=== PATIENT | male | born 1935 | race Caucasian/White ===

== ENCOUNTER 2017-05-27 10:50 | Emergency (ER) | payer OTHER ==
[~2017-05-27] VITALS: Ht 167.6 cm; Wt 79.8 kg
[~2017-05-27 10:50] MED LIST: ALEVE220 MG PO; B-COMPLEX-VITA1 EACH PO; CELEXA 10 MG TA10 M1 PO; IBUPROFEN 800800 M1 PO; IRON PO; KEFLEX500 MG PO; MIDODRINE HCL 55 M1 PO; MULTIVITAMINS PO; NORCO 5-325 TA1 EACH PO; VITAMIN E400 UNIT PO; ZOCOR20 MG PO
[2017-05-27] MEDS ORDERED: ASPIR 8181 MG PO (11:10)
[2017-05-27] MEDS ORDERED: VITAMIN D3400 UNIT PO (11:10)
[2017-05-27] MEDS ORDERED: HYDROCODONE-AP1 EAC6 PO (11:49)
[2017-05-27] MEDS ORDERED: IBUPROFEN 600600 M1 PO (11:49)
[2017-05-27] MEDS ORDERED: NORFLEX100 MG PO (11:49)
[2017-05-27 12:03] VITALS: BP 147/80
== END 2017-05-27 12:04 | disposition home or self-care (01) ==
LOC: M.ERS 10:50
DX: S39.012A Strain of muscle, fascia and tendon of lower back, initial encounter (principal); M19.90 Unspecified osteoarthritis, unspecified site; Z95.1 Presence of aortocoronary bypass graft; Z98.890 Other specified postprocedural states; X58.XXXA Exposure to other specified factors, initial encounter; Y93.E9 Activity, other interior property and clothing maintenance; Y92.89 Other specified places as the place of occurrence of the external cause; Y99.0 Civilian activity done for income or pay

== ENCOUNTER → 2017-06-01 | Outpatient (CLI) | payer OTHER ==
[~2017-06-01] MED LIST changes: +ASPIR 8181 MG PO; +HYDROCODONE-AP1 EAC6 PO; +IBUPROFEN 600600 M1 PO; +NORFLEX100 MG PO; +VITAMIN D3400 UNIT PO
== END ==
LOC: M.RAD 10:06
DX: M47.896 Other spondylosis, lumbar region (principal); M41.86 Other forms of scoliosis, lumbar region; M25.78 Osteophyte, vertebrae; M47.894 Other spondylosis, thoracic region

== ENCOUNTER → 2017-06-13 | Outpatient (CLI) | payer OTHER | LOC: M.MRI 10:50 | DX: M47.816 Spondylosis without myelopathy or radiculopathy, lumbar region (principal); M41.86 Other forms of scoliosis, lumbar region; M47.894 Other spondylosis, thoracic region; M51.27 Other intervertebral disc displacement, lumbosacral region; L05.91 Pilonidal cyst without abscess ==

== ENCOUNTER → 2020-01-06 | Outpatient (CLI) | payer OTHER ==
--- NOTE | 2020-01-06 17:06 | EXE ---
[place] [address] STRESS ECHOCARDIOGRAM Name: IMER HERNANDEZ Room: [facility]#: [id number] Admission: 01/06/20 Attend Phys: Rasheed Oliveira MD Discharge: Date of : 33 Date of Service: 01/06/20 1706 Report #: [id number] THIS REPORT FOR: cc: Dharmesh Glynn,Dharmesh Chavez,Richard Polanco MD [facility] ~ APPROVED REPORT Study performed: 01/06/2020 15:43:36 Exam: Dobutamine Stress Echo Indication: Chest pain , Dyspnea Patient Location: Out-Patient Stress Nurse: Sheila Yuen RN Supervising Physician: Richard Meadows MD Ht: 5 ft 6 in HR: 64 bpm BP: 125/71 mmHg Medical History Medical History: CAD s/p CABG Cardiac Risk Factors: Hyperlipidemia, Tobacco History (Former), Age Procedure The patient underwent a Pharmacological Stress Test using Dobutamine. Blood pressure, heart rate, and EKG were monitored. An Echocardiogram was performed by radio frequency technician in four stages in quad fashion. At peak stress, four selected images were obtained and placed side by side with resting images for comparison. Stress Test Details Stress Test: Pharmacological Stress Test using Dobutamine. Reason for pharmacologic stress test: physical limitation. HR Resting HR: 64 bpm Max Heart Rate (APMHR): 135 bpm Max HR Achieved: 129 bpm Target HR (85% APMHR): 114 bpm % of APMHR: 95 Recovery HR: 87 bpm HR response to stress: Normal HR response to stress BP Resting BP: 125/71 [place] [address] STRESS ECHOCARDIOGRAM Name: IMER HERNANDEZ Room: [facility]#: [id number] Admission: 01/06/20 Attend Phys: Rasheed Oliveira MD Discharge: Date of : 33 Date of Service: 01/06/20 1706 Report #: [id number] Max BP: 148/71 mmHg Recovery BP: 139/71 mmHg BP response to stress: Normal blood pressure response to stress. ECG Resting ECG: sinus thythm, RBBB with NERIS Stress ECG: no ischemic st-t changes Arrhythmia: no significant arrhythmias Clinical Reason for Termination: Completed protocol Stress ECG Conclusion 1 no chest pain during test [address]-t changes noted 3 appropriate heart rate response to dobutamine infusion 4 appropriate increase in systolic BP with dobutamine infusion 5 negative dobutamine echo stress test for evidence of myocardial ischeia Pre-Stress Echo The resting Echocardiogram showed normal left ventricular contractility with an estimated Ejection Fraction of about 55-60%. Normal wall motion in all segments on baseline images. Post-Stress Echo The stress Echocardiogram showed normal left ventricular contractility with an estimated Ejection Fraction of about 65-70%. Normal augmentation of wall motion in all segments on post stress images. Conclusion Clinical Response: Non-ischemic Stress ECG Response: Non-ischemic Stress Echo Images: [place] [address] STRESS ECHOCARDIOGRAM Name: IMER HERNANDEZ Room: [facility]#: [id number] Admission: 01/06/20 Attend Phys: Rasheed Oliveira MD Discharge: Date of : 33 Date of Service: 01/06/201705 Report #: [id number] Other Information Study Quality: Good <ELECTRONICALLY SIGNED> By: Richard Meadows MD, FACC 01/06/201705 05 05 Richard Meadows MD, FACC /INF
== END ==
LOC: M.CRD 12-31 11:00
PROVIDERS: ATTEND Internal Medicine Cardiovascular Disease
DX: I25.10 Atherosclerotic heart disease of native coronary artery without angina pectoris (principal)

== ENCOUNTER → 2020-02-25 | Outpatient (CLI) | payer OTHER | LOC: M.RAD 12:20 | PROVIDERS: ATTEND Internal Medicine Cardiovascular Disease | DX: R06.02 Shortness of breath (principal) ==